=== PATIENT | male | born 1980 | race Caucasian/White ===

== ENCOUNTER → 2018-05-22 | Outpatient (CLI) | payer BC ==
[2018-05-22 13:40] LABS: CHOLESTEROL RISK RATIO 6.5
== END ==
LOC: COL.LAB 11:27
PROVIDERS: Family Medicine
DX: Z00.00 Encounter for general adult medical examination without abnormal findings (principal)

== ENCOUNTER → 2019-09-24 | Outpatient (CLI) | payer BC | LOC: ZCOL.LAB 17:05 | DX: I10 Essential (primary) hypertension (principal) ==